=== PATIENT | female | born 1990 | race Caucasian/White ===

== ENCOUNTER 2017-04-24 23:45 | Inpatient (IN) | payer OTHER, BC ==
[2017-04-25] MEDS ORDERED: Penicillin G Potassium 5 MILLUNITS in Sodium Chloride 0.9% 100 ML IV ONE (00:53)
[2017-04-25] MEDS ORDERED: hydrOXYzine HCl 25 MG Tab PO ONE (00:56)
[2017-04-25] MEDS: Lactated Ringers 1,000 ML IV SCH ×6 (01:25→11:44)
[2017-04-25] MEDS ORDERED: Nalbuphine 10 MG/1 ML Vial IM ONE (03:23)
[2017-04-25] MEDS: Penicillin G Potassium 2.5 MILLUNITS in Sodium Chloride 0.9% 100 ML IV SCH ×3 (05:31→18:35)
[2017-04-25] MEDS: Ondansetron 4 MG/2 ML SDV IV PRN ×2 (07:55→11:47)
--- NOTE | 2017-04-25 07:58 | PCM.SN ---
- Free Text/Narrative Note: DOS: 04-25-17 Doing well cervix 5cm between cxns. 4+ with cxn. 0 to +1 station completely effaced vertex, ROP with AF @ 230 BOWI--AROM with returnof clear fluid cxns strong and regular low grade temp noted approx 100--will follow. has had PCN X 2 with dose #3 due soon will have intrathecal now continue to monitor closely knee chest position until intrathecal in all questions answered staff and pt/ comfortable with plan. hmb
[2017-04-25] MEDS ORDERED: ePHEDrine 50 MG/ML SDV ONE (08:15)
[2017-04-25] MEDS ORDERED: fentaNYL 100 MCG/2 ML SDV ONE ×2 (08:15→11:50)
--- NOTE | 2017-04-25 08:47 | PCM.PREANE ---
Preanesthetic Assessment - Anesthesia/Transfusion/Family Hx Anesthesia History: No Prior Anesthesia Family History of Anesthesia Reaction: No Transfusion History: No Prior Transfusion(s) Intubation History: Unknown - Review of Systems General: No Symptoms Pulmonary: No Symptoms Cardiovascular: No Symptoms Gastrointestinal: No symptoms Neurological: No Symptoms Other: Reports: None - Physical Assessment NPO Status Date: 04/25/17 NPO Status Time: 06:00 Pulse: 94 O2 Sat by Pulse Oximetry: 99 Respiratory Rate: 18 Blood Pressure: 104/66 Vital Signs: Last Vital Signs Temp 38.0 C 04/25/17 06:30 Pulse 94 04/25/17 06:30 Resp 18 04/25/17 01:30 BP 118/69 04/25/17 06:00 Pulse Ox 99 04/25/17 06:30 Height: 1.75 m Weight: 83.007 kg ASA Class: 2 Mental Status: Alert & Oriented x3 Airway Class: Mallampati = 2 Dentition: Reports: Normal Dentition Thyro-Mental Finger Breadths: 3 Mouth Opening Finger Breadths: 4 ROM/Head Extension: Full Lungs: Clear to auscultation, Normal respiratory effort Cardiovascular: Regular Rate, Regular Rhythm - Lab Values: Laboratory Last Values WBC 14.1 10^3/uL (5.0-10.0) H 04/25/17 01:10 RBC 4.12 10^6/uL (4.2-5.4) L 04/25/17 01:10 Hgb 12.9 g/dL (12.0-16.0) 04/25/17 01:10 Hct 38.2 % (37.0-47.0) 04/25/17 01:10 MCV 92.7 fL (80-100) 04/25/17 01:10 MCH 31.3 pg (27.0-34.0) 04/25/17 01:10 MCHC 33.8 g/dL (33.0-35.0) 04/25/17 01:10 Plt Count 197 10^3/uL (150-450) 04/25/17 01:10 - Allergies Allergies/Adverse Reactions: Allergies Allergy/AdvReac Type Severity Reaction Status Date / Time No Known Allergies Allergy Verified 04/25/17 00:55 - Anesthesia Plan Pre-Op Medication Ordered: None - Acknowledgements Anesthesia Type Planned: Spinal Pt an Appropriate Candidate for the Planned Anesthesia: Yes Alternatives and Risks of Anesthesia Discussed w Pt/Guardian: Yes Pt/Guardian Understands and Agrees with Anesthesia Plan: Yes Additional Comments: Itrathecal Narctotics for labor pain Risks/Benefits discussed and accepted by patient PreAnesthesia Questionnaire - Past Health History Medical/Surgical History: Denies Medical/Surgical History - Infectious Disease History Infectious Disease History: Reports: Chicken Pox - SUBSTANCE USE Smoking Status *Q: Never Smoker Second Hand Smoke Exposure: No Recreational Drug Use History: No - CURRENT (IN HOUSE) MEDS Current Meds: Current Medications Lactated Ringer's (Ringers, Lactated) 1,000 mls @ 125 mls/hr IV ASDIRECTED COUNT INCLUDES THE [facility] Last Admin: 04/25/17 06:06 Dose: 125 mls/hr Penicillin G Potassium 2.5 (millunits/ Sodium Chloride) 100 mls @ 200 mls/hr IV Q4H COUNT INCLUDES THE [facility] Last Admin: 04/25/17 05:31 Dose: 200 mls/hr Ondansetron HCl (Zofran) 4 mg IV Q4H PRN PRN Reason: Nausea/Vomiting Discontinued Medications Hydroxyzine HCl (Atarax) 50 mg PO ONETIME ONE Stop: 04/25/17 00:57 Last Admin: 04/25/17 02:32 Dose: 50 mg Penicillin G Potassium 5 (millunits/ Sodium Chloride) 100 mls @ 200 mls/hr IV ONETIME ONE Stop: 04/25/17 01:22 Last Admin: 04/25/17 01:22 Dose: 200 mls/hr Nalbuphine HCl (Nubain) 20 mg IM ONETIME ONE Stop: 04/25/17 03:24 Last Admin: 04/25/17 03:42 Dose: 20 mg
--- NOTE | 2017-04-25 08:54 | PCM.PRNOTE ---
- Free Text/Narrative Note: Itrathecal Narcotics procedure note. Patient ID'd R/B discussed, Chart reviewed , in sitting position sterile prep with Betadine and draped. L4-5 space ID's skin wheel with 1% lidocaine. 18 G introducer needle advanced into L4-5 inner space no blood no parasthesia, 23 G pencan needle advanced into SA space positive CSF No Blood no Parasthesia positive swirl sufentanyl 20 mcg+ Fentanyl 30 mcg+ Hyperbaric marcain 6 mg+ 1.2 ml Preservative free saline injected( epinepherine wash not used on the nurse's request, because she feels the patient is progressing very fast and needs to push) into SA space. Immediate pain relief experienced by patient. BP111/67 HR94 Spinal level T8 bilateral.
[2017-04-25] MEDS ORDERED: fentaNYL 100 MCG/2 ML SDV ITHECAL ONE ×2 (11:51→14:47)
--- NOTE | 2017-04-25 12:08 | PCM.PRNOTE ---
- Free Text/Narrative Note: Itrathecal Narcotics procedure note. Patient ID'd R/B discussed, Chart reviewed , in sitting position sterile prep with Betadine and draped. L3-4 space ID's skin wheel with 1% lidocaine. 18 G introducer needle advanced into L4-5 inner space no blood no parasthesia, 23 G pencan needle advanced into SA space positive CSF No Blood no Parasthesia positive swirl sufentanyl 20 mcg+ Fentanyl 30 mcg+ Hyperbaric marcain 6 mg+ 1.2 ml Preservative free saline injected+ epinepherine wash into SA space. Immediate pain relief experienced by patient. BP105/67 HR94 Spinal level T8 bilateral.
[2017-04-25] MEDS ORDERED: Methylergonovine 0.2 MG/1 ML Amp ONE (13:19)
[2017-04-25] MEDS: Oxytocin/Normal Saline 30 UNIT/500 ML BAG IV SCH ×2 (13:20→15:30)
[2017-04-25] MEDS ORDERED: Methylergonovine 0.2 MG/1 ML Amp IM PRN (13:52)
[2017-04-25] MEDS ORDERED: Misoprostol 400 MCG (4 X 100 MCG TAB) RECTAL PRN (13:52)
[2017-04-25] MEDS ORDERED: Lactated Ringers 500 ML IV ONE (13:52)
[2017-04-25] MEDS ORDERED: Carboprost Tromethamine 250 MCG/1 ML Amp IM PRN (13:52)
[2017-04-25] MEDS ORDERED: Sodium Chloride 0.9% 10 ML Syringe FLUSH PRN (13:52)
[2017-04-25] MEDS ORDERED: Zolpidem 5 MG Tab PO PRN (13:56)
[2017-04-25] MEDS ORDERED: Benzocaine/Menthol 20%-0.5% Spray 56 GM Canister TOP PRN (13:56)
[2017-04-25] MEDS ORDERED: Lactated Ringers 1,000 ML IV SCH (14:00)
--- NOTE | 2017-04-25 14:03 | PCM.DEL ---
L & D Note - General Info Date of Service: 04/25/17 (time of delivery 1314) Mother's Due Date: 05/03/17 - Delivery Note Labor: spontaneous, augmented by ARM Delivery Outcome: Livebirth Delivery Method: Spontaneous Vaginal Delivery Infant Delivery Mode: Vacuum Extraction Presentation: Left Occiput Anterior (RAYMON) Nuchal cord: none Prep: povidone-iodine (betadine Anesthesia Type: Intrathecal Amniotic Fluid Description: Clear Episiotomy Type: None Laceration: 2nd degree Suture type: vicryl Suture size: 3-0 Placenta: expressed Cord: 3 vessels Estimated blood loss: 450 Resuscitation needed: No [place]: bulb syringe, stimulated Provider: Alyse Gardner Score 1 min: 8 Score 5 min: 9 Vacuum Extractor Progress Note - Alternative Labor Strategies Considered Alternative labor strategies considered:: Reports: yes Strategies considered:: Reports: Contraction intensity adequate, Position changes used to facilitate rotation & descent, Empty bladder, Rest Indications considered:: Reports: yes Time out:: Reports: yes - Patient Prepared Patient prepared:: Reports: yes Informed consent:: Reports: Yes Risks: Reports: yes Anesthesia/analgesia adequate:: Reports: yes - Probability of Success High probability of success:: Reports: yes weight estimated:: Reports: AGA Patient diabetic:: Reports: no Pelvis adequate:: Reports: yes Position:: RAYMON Asynclitic:: Reports: no Station:: with cxn - Application Time Maximum application time & number of pop-offs predetermined:: Reports: yes Number of times cup disengaged:: 0 Type of vacuum used:: Reports: Cup: [place] type Vacuum Extraction: Successful Comments:: vacuum cup on with only part of one contraction before delivery of baby. hmb - Exit Strategy Exit strategy available:: Reports: yes and resuscitation teams readily available:: Reports: yes Consult as indicated:: NA - Patient Data Vitals - most recent: Last Vital Signs Temp 100.1 F 04/25/17 10:15 Pulse 88 04/25/17 10:45 Resp 18 04/25/17 08:47 BP 188/64 H 04/25/17 10:45 Pulse Ox 98 04/25/17 10:45 Weight - most recent: 183 lb I&O - last 24 hours: Intake & Output 04/24/17 04/25/17 04/25/17 22:59 06:59 14:59 Intake Total 2200 Output Total 800 Balance 2200 -800 Lab Results last 24 hrs: Laboratory Results - last 24 hr 04/25/17 Range/Units 01:10 WBC 14.1 H (5.0-10.0) 10^3/uL RBC 4.12 L (4.2-5.4) 10^6/uL Hgb 12.9 (12.0-16.0) g/dL Hct 38.2 (37.0-47.0) % MCV 92.7 (80-100) fL MCH 31.3 (27.0-34.0) pg MCHC 33.8 (33.0-35.0) g/dL Plt Count 197 (150-450) 10^3/uL Med Orders - Current: Current Medications Acetaminophen (Tylenol) 650 mg PO Q4H PRN PRN Reason: Pain (Mild 1-3) and fever Carboprost Tromethamine (Hemabate Ds) 250 mcg IM ASDIRECTED PRN PRN Reason: HEMORRHAGE Lactated Ringer's (Ringers, Lactated) 1,000 mls @ 125 mls/hr IV ASDIRECTED [facility] Last Admin: 04/25/17 11:44 Dose: 100 mls/hr Penicillin G Potassium 2.5 (millunits/ Sodium Chloride) 100 mls @ 200 mls/hr IV Q4H [facility] Last Admin: 04/25/17 10:01 Dose: 200 mls/hr Lactated Ringer's (Ringers, Lactated) 500 mls @ 500 mls/hr IV .BOLUS ONE Stop: 04/25/17 14:51 Lactated Ringer's (Ringers, Lactated) 1,000 mls @ 125 mls/hr IV ASDIRECTED [facility] Methylergonovine Maleate (Methergine) 0.2 mg IM ASDIRECTED PRN PRN Reason: Hemorrhage Misoprostol (Cytotec) 800 mcg RECTAL ASDIRECTED PRN PRN Reason: Hemorrhage Ondansetron HCl (Zofran) 4 mg IV Q4H PRN PRN Reason: Nausea/Vomiting Last Admin: 04/25/17 11:47 Dose: 4 mg Sodium Chloride (Saline Flush) 10 ml FLUSH ASDIRECTED PRN PRN Reason: Keep Vein Open Discontinued Medications Ephedrine Sulfate (Ephedrine Sulfate) Confirm Administered Dose 50 mg .ROUTE .STK-MED ONE Stop: 04/25/17 08:16 Fentanyl (Sublimaze) Confirm Administered Dose 100 mcg .ROUTE .STK-MED ONE Stop: 04/25/17 08:16 Fentanyl (Sublimaze) Confirm Administered Dose 100 mcg .ROUTE .STK-MED ONE Stop: 04/25/17 11:51 Hydroxyzine HCl (Atarax) 50 mg PO ONETIME ONE Stop: 04/25/17 00:57 Last Admin: 04/25/17 02:32 Dose: 50 mg Penicillin G Potassium 5 (millunits/ Sodium Chloride) 100 mls @ 200 mls/hr IV ONETIME ONE Stop: 04/25/17 01:22 Last Admin: 04/25/17 01:22 Dose: 200 mls/hr Methylergonovine Maleate (Methergine) Confirm Administered Dose 0.2 mg .ROUTE .STK-MED ONE Stop: 04/25/17 13:20 Nalbuphine HCl (Nubain) 20 mg IM ONETIME ONE Stop: 04/25/17 03:24 Last Admin: 04/25/17 03:42 Dose: 20 mg Sufentanil Citrate (Sufenta) Confirm Administered Dose 50 mcg .ROUTE .STK-MED ONE Stop: 04/25/17 08:16 Sufentanil Citrate (Sufenta) Confirm Administered Dose 50 mcg .ROUTE .STK-MED ONE Stop: 04/25/17 11:52 - Problem List Review Problem List Initiated/Reviewed/Updated: Yes - My Orders Last 24 Hours: My Active Orders 04/25/17 00:57 Communication Order [RC] PER UNIT ROUTINE 04/25/17 01:00 Lactated Ringers [Ringers, Lactated] 1,000 ml IV ASDIRECTED 04/25/17 04:30 Penicillin G Potassium [Pfizerpen] 2.5 millunits Sodium Chloride 0.9% [Normal Saline] 100 ml IV Q4H 04/25/17 07:54 Ondansetron [Zofran] 4 mg IV Q4H PRN 04/25/17 13:52 Patient Status [ADT] Routine Communication Order [RC] ASDIRECTED Heart Tones [RC] PER UNIT ROUTINE Notify Provider Vital Signs OB [RC] ASDIRECTED Notify Provider [RC] PRN Up ad [place] [RC] ASDIRECTED Vital Signs [RC] PER UNIT ROUTINE Acetaminophen [Tylenol] 650 mg PO Q4H PRN Carboprost Tromethamine [Hemabate DS] 250 mcg IM ASDIRECTED PRN Lactated Ringers [Ringers, Lactated] 500 ml IV .BOLUS Methylergonovine [Methergine] 0.2 mg IM ASDIRECTED PRN Misoprostol [Cytotec] 800 mcg RECTAL ASDIRECTED PRN Sodium Chloride 0.9% [Saline Flush] 10 ml FLUSH ASDIRECTED PRN Saline Lock Insert [OM.PC] Routine Resuscitation Status Routine 04/25/17 13:54 Pump Management, Intrathecal [RC] ASDIRECTED 04/25/17 13:56 Consult to Radiation Officer [CONS] Routine Benzocaine/Menthol [Dermoplast Pain Relief [place]] See Dose Instructions TOP Q4H PRN Docusate Sodium [Colace] 100 mg PO BID PRN Ibuprofen [Motrin] 800 mg PO Q8H PRN Simethicone 80 mg PO Q4H PRN Zolpidem [Ambien] 5 mg PO BEDTIME PRN Assess Lochia [WOMSER] Per Unit Routine Assess Uterine Involution [WOMSER] Per Unit Routine Breast Pump [WOMSER] Per Unit Routine Ice Therapy [OM.PC] Per Unit Routine Perineal Care [OM.PC] Per Unit Routine Sitz Bath [OM.PC] Per Unit Routine 04/25/17 14:00 Lactated Ringers @ 125 MLS/HR(1000ml) Lactated Ringers [Ringers, Lactated] 1, 000 ml IV ASDIRECTED 04/26/17 09:00 Vit with Ca/FA/Iron [ Plus Iron] 1 each PO DAILY 04/27/17 05:11 CBC W/O DIFF,HEMOGRAM [HEME] AM - Assessment Assessment:: VAVD--see plan section for details. - Plan Plan:: Assessment: 26yo WF G1 now P1 VAVD delivered 04-25-17 @ 1314 male infant APGARs 8 & 9 7lb 10oz/3460g 2 degree lac repaired without difficulty 450cc blood loss O negative blood type Plan: routine nursery and orders. b
[2017-04-25] MEDS ORDERED: Lidocaine 1% 30 ML SDV INJECT ONE (14:17)
[2017-04-25] MEDS: Ibuprofen 800 MG Tab PO PRN (19:24)
[2017-04-25] MEDS: Simethicone 80 MG Tab.Chew PO PRN (19:24)
[2017-04-25] MEDS: Docusate Sodium 100 MG Cap PO PRN (19:24)
--- NOTE | 2017-04-25 20:10 | PCM.POSTAN ---
POST ANESTHESIA ASSESSMENT - MENTAL STATUS Mental Status: alert, oriented - VITAL SIGNS Pulse Rate: 89 SaO2: 99 Resp Rate: 18 Blood Pressure: 118/72 - RESPIRATORY Respiratory Status: respiratory rate WNL, airway patent, O2 saturation stable - CARDIOVASCULAR CV Status: pulse rate WNL, blood pressure stable - GASTROINTESTINAL GI Status: no symptoms - PAIN Pain Score: 0 - POST OP HYDRATION Hydration Status: adequate & stable - OBSERVATIONS Free Text/Narrative:: Patient is fully recovered from the effect of the Intrathecal Narctics. Ambulated twice without any problems. Sitting in bed pain free and pleased with her anesthetics
[2017-04-26] MEDS: Ibuprofen 800 MG Tab PO PRN ×2 (04:34→18:27)
--- NOTE | 2017-04-26 07:17 | HP ---
CHIEF COMPLAINT: Onset of labor. HISTORY OF PRESENT ILLNESS: This delightful 26-year-old, 1, para 0, at 38 and 5/7th weeks' gestation was seen in the clinic today and found to be 1-2 cm dilated. She was having intermittent [place] contractions and feeling a lot of pelvic pressure. The baby had been active. Please see her clinic note for details. care: Her care had been started in her first trimester, and she has been very compliant with her visits. dating is by LMP and confirmed by a 22-week ultrasound, which is consistent with her dates and within normal limits. Lab work showed, O negative blood type, and she did receive her RhoGAM. Her antibody screen is negative. Baseline hemoglobin is 13.7 with a followup of 12.8. Platelet counts were 272 and 249. Rubella immune. RPR nonreactive. HIV negative. STD testing was all within normal limits. Hepatitis C was negative. One-hour sugar screen normal at 80. Group B strep was positive in her first urine culture, and therefore she did not need a rectovaginal swab as she did require prophylaxis for delivery and this had been discussed with her. Please see her notes for details. Of note, she did have a foreign travel to the [facility], but there was no known exposure to mosquitos or insect bites, and she did not have any symptoms of Zika virus infection. MEDICATIONS: Include her vitamins. ALLERGIES: None. PAST OBSTETRICAL HISTORY: Negative. PAST MEDICAL HISTORY: Includes acne and is otherwise unremarkable. She has had distant chickenpox. FAMILY HISTORY: Diabetes in maternal grandmother, otherwise unremarkable. SOCIAL HISTORY: She was to [place] in 2016. 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 Nonsmoker. No history of alcohol or drug abuse. This is their first child and they did not know the gender in advance. They are very excited about having a child. IMMUNIZATIONS: Up-to-date on immunizations, and did receive both flu shot and Tdap during this . REVIEW OF SYSTEMS: Otherwise noncontributory. PHYSICAL EXAMINATION: Vital Signs: Objective information on arrival, please see her graphics for details of her vitals. Her blood pressure has remained within normal limits throughout her . HEENT: Negative. Lungs: Clear. Heart: Sounds regular. Abdomen: Gravid and within normal limits at her clinic checkup. Cervix: Her cervix was 1.5 cm dilated cervix, 80% to 90% effaced, and -2 station. Bag of water intact, vertex presenting. Extremities: No peripheral edema. LABORATORY DATA: NST on arrival was reassuring. CBC was drawn and pending. IMPRESSION: 1. A 26-year-old, 1, para 0, at 38 and 5/7th weeks' gestation with onset of spontaneous labor. 2. Group B strep positive. 3. O negative, received RhoGAM during her . 4. Rubella immune. 5. Reassuring status. PLAN: The patient was admitted with routine admit orders. We will plan on penicillin prophylaxis as discussed. Further management pending her course in labor. [facility] /[id number]
[2017-04-26] MEDS: Prenatal Multivitamin with Calcium/Folic Acid/Iron Tab PO SCH (09:26)
[2017-04-26] MEDS: Acetaminophen 325 MG Tab PO PRN (09:27)
[2017-04-26] MEDS: Docusate Sodium 100 MG Cap PO PRN ×2 (09:28→22:04)
[2017-04-26] MEDS: Simethicone 80 MG Tab.Chew PO PRN (09:28)
[2017-04-27] MEDS: Ibuprofen 800 MG Tab PO PRN (03:04)
[2017-04-27 08:00] VITALS: BP 98/64
[2017-04-27] MEDS: Prenatal Multivitamin with Calcium/Folic Acid/Iron Tab PO SCH (08:08)
[2017-04-27] MEDS: Acetaminophen 325 MG Tab PO PRN (08:08)
[2017-04-27] MEDS: Simethicone 80 MG Tab.Chew PO PRN (08:08)
[2017-04-27] MEDS: Docusate Sodium 100 MG Cap PO PRN (08:08)
--- NOTE | 2017-04-28 02:03 | PCM.SN ---
- Free Text/Narrative Note: DOS: 04-26-17 PPD #1 Nayeli doing very well following her VAVD nursing going well. some cramping with nursing. flow decreasing. voiding and stooling ok. mbulating well. bonding well with baby. Afebrile, VSS staff without concerns. has seen obiee consultant fundus firm, nontender Continue with routine PP cares Plan home tomorrow see nursing notes for further details. hmb
--- NOTE | 2017-04-28 04:08 | DISCH ---
FINAL DIAGNOSES: 1. A 26-year-old, 1, now para 1, 38-week 6-day gestation. 2. Vacuum assisted vaginal delivery, viable male . 3. Group B Streptococcus positive, received penicillin prophylaxis multiple doses. 4. mom. 5. Second-degree laceration repair. 6. O negative blood type, received RhoGAM. 7. Rubella immune. 8. anemia. FINDINGS: This delightful 26-year-old, 1, para 0, presented with onset of labor. She progressed on, had artificial rupture of membranes, carried out with return of clear fluid. Due to her positive group B strep status, she had been started on penicillin prophylaxis, which was continued throughout labor. Please see her admission H and P for details. Please also see her episode notes for details of her care. The patient delivered a viable male infant, weighing 3460 g on 04/25/2017, at 1314 hours, with a vacuum assist with part of 1 contraction. scores were 8 and 9 at 1 and 5 minutes respectively. She did have a second-degree laceration, which was repaired without difficulty and she had good anesthesia with her intrathecal and did not require a local. Her course has been uneventful. She is voiding, stooling, ambulating without difficulty. She is eating without problems. She is and has seen the telecom sales consultant. Blood type is O negative. On admit, she did have a positive antibody screen and that was found to be a passive anti-D likely from her RhoGAM given during her . Her -maternal bleeding screen was negative. Cord blood was found to be B positive and she was given RhoGAM. Hemoglobin on admit was 12.9, and a recheck the day of discharge was 10.5. She will be discharged home with iron supplementation and will continue her vitamins daily. Clinically, she has done well, her fundus has remained firm, her flow is decreasing. She has remained afebrile with stable vital signs. She will be discharged home in good condition on 04/27/2017, and will follow up in the clinic for routine check in 6 to 8 weeks and sooner with any problems. She is to call or follow up with any problems in the meantime, and other routine discharge instructions were given. All of her questions were answered. [facility] /[id number]
== END 2017-04-27 16:53 | disposition home or self-care (01) | DRG 775 ==
LOC: DL.OBCHECK 23:45 → DL.OB 04-25 00:51 → OBSVTOIN 04-25 13:14
PROVIDERS: ADMIT Family Medicine; ATTEND Family Medicine
PROC: 10D07Z6 Extraction of Products of Conception, Vacuum, Via Natural or Artificial Opening (ICD-10-PCS; principal; 2017-04-25)
PROC: 0KQM0ZZ Repair Perineum Muscle, Open Approach (ICD-10-PCS; 2017-04-25)
PROC: 10907ZC Drainage of Amniotic Fluid, Therapeutic from Products of Conception, Via Natural or Artificial Opening (ICD-10-PCS; 2017-04-25)
PROC: 3E0R3CZ (ICD-10-PCS; 2017-04-25)
DX: O99.824 Streptococcus B carrier state complicating childbirth (principal); O70.1 Second degree perineal laceration during delivery; O90.81 Anemia of the puerperium; D64.9 Anemia, unspecified; Z3A.38 38 weeks gestation of pregnancy; Z37.0 Single live birth
CPT/HCPCS: 01967; 36415; 85027; 85461; 86850; 86870; 86900; 86901; A9270-GY; J2300; J2405; J2540; J2590; J2790; J3010; J7050; J7120

== ENCOUNTER 2019-02-11 17:44 | Emergency (ER) | payer BC, OTHER ==
[2019-02-11 17:52] VITALS: BP 116/68
[2019-02-11 18:22] LABS: ANION GAP 13.3; CHLORIDE,CL 104 mmol/L (101-111); SODIUM,NA 135 mmol/L (135-145)
[2019-02-11 18:25] LABS: ACETAMINOPHEN < 10 ug/mL
--- NOTE | 2019-02-11 18:52 | EDM.PDOC ---
Scribed by Aline Garcia 02/11/19 1816 for Zafar Jaramillo PA <Zafar Jaramillo - Last Filed: 02/11/19 18:51> ED HPI GENERAL MEDICAL PROBLEM - General Chief Complaint: Abdominal Pain Stated Complaint: SERVERE STOMACH PAINS [phone] Time Seen by Provider: 02/11/19 17:49 Source of Information: Reports: Patient, RN, RN Notes Reviewed History Limitations: Reports: No Limitations - History of Present Illness INITIAL COMMENTS - FREE TEXT/NARRATIVE: This 28 yo female patient reports with diffuse upper abdominal pain. The patient reports her symptoms started this afternoon. The patient reports she took a stool softener (due to no bowel movement in 2 days), Tums (has never had acid reflux) and Zantac with no relief. The patient reports some pain relief with sitting up and forward. The patient reports she had a cheese quesadilla for lunch which is not abnormal for her. The patient reports that she had Influenza last week and was on Tamiflu. Onset: Today Onset Date: 02/11/19 Duration: Constant Location: Reports: Abdomen Quality: Reports: Ache, Sharp, Stabbing Severity: Moderate Improves with: Reports: None Worsens with: Reports: None Context: Reports: Other Associated Symptoms: Reports: No Other Symptoms - Related Data Allergies Allergy/AdvReac Type Severity Reaction Status Date / Time No Known Allergies Allergy Verified 02/11/19 17:54 Home Meds: Home Meds . [No Known Home Meds] 02/11/19 [History] Past Medical History - Past Health History Medical/Surgical History: Denies Medical/Surgical History - Infectious Disease History Infectious Disease History: Reports: Chicken Pox Social & Family History - Family History Family Medical History: Noncontributory - Caffeine Use Caffeine Use: Reports: None ED ROS GENERAL - Review of Systems Review Of Systems: ROS reveals no pertinent complaints other than HPI. ED EXAM, GI/ABD - Physical Exam Exam: See Below Exam Limited By: No Limitations General Appearance: Alert, WD/WN, Moderate Distress Eyes: Bilateral: Normal Appearance, EOMI Ears: Normal External Exam, Normal Canal, Hearing Grossly Normal, Normal TMs Nose: Normal Inspection, Normal Mucosa, No Blood Throat/Mouth: Normal Inspection, Normal Lips, Normal Teeth, Normal Gums, Normal Oropharynx, Normal Voice, No Airway Compromise Head: Atraumatic, Normocephalic Neck: Normal Inspection, Supple, Non-Tender, Full Range of Motion Respiratory/Chest: No Respiratory Distress, Lungs Clear, Normal Breath Sounds, No Accessory Muscle Use, Chest Non-Tender Cardiovascular: Normal Peripheral Pulses, Regular Rate, Rhythm, No Edema, No Gallop, No JVD, No Murmur, No Rub GI/Abdominal Exam: Normal Bowel Sounds, No Organomegaly, No Distention, No Abnormal Bruit, No Mass, Pelvis Stable, Tender (diffuse abdominal tenderness) (Female) Exam: Deferred Rectal (Female) Exam: Deferred Back Exam: Normal Inspection, Full Range of Motion, NT Extremities: Normal Inspection, Normal Range of Motion, Non-Tender, Normal Capillary Refill, No Pedal Edema Neurological: Alert, Oriented, CN II-XII Intact, Normal Cognition, Normal Gait, Normal Reflexes, No Motor/Sensory Deficits Psychiatric: Normal Affect, Normal Mood Skin Exam: Warm, Dry, Intact, Normal Color, No Rash Lymphatic: No Adenopathy Course - Vital Signs Last Recorded V/S: Last Vital Signs Temp 98.4 F 02/11/19 17:49 Pulse 90 02/11/19 17:49 Resp 18 02/11/19 17:49 BP 116/68 02/11/19 17:49 Pulse Ox 99 02/11/19 17:49 - Orders/Labs/Meds Orders: Active Orders 24 hr Category Date Time Status CULTURE BLOOD [BC] Stat Lab 02/11/19 17:54 Results CULTURE URINE [RM] Stat Lab 02/11/19 18:04 Received Labs: Laboratory Tests 02/11/19 02/11/19 02/11/19 Range/Units 17:54 17:54 17:54 WBC 7.8 (5.0-10.0) 10^3/uL RBC 4.64 (4.2-5.4) 10^6/uL Hgb 13.6 D (12.0-16.0) g/dL Hct 39.7 (37.0-47.0) % MCV 85.6 D (80-100) fL MCH 29.3 (27.0-34.0) pg MCHC 34.3 (33.0-35.0) g/dL Plt Count 313 D (150-450) 10^3/uL Neut % (Auto) 59.9 (42.2-75.2) % Lymph % (Auto) 31.0 (20.5-50.1) % Creek % (Auto) 7.9 (2-8) % Eos % (Auto) 1.1 (1.0-3.0) % Baso % (Auto) 0.1 (0.0-1.0) % Sodium (135-145) mmol/L Potassium (3.6-5.0) mmol/L Chloride (101-111) mmol/L Carbon Dioxide (21.0-31.0) mmol/L Anion Gap BUN (7-18) mg/dL Creatinine (0.6-1.3) mg/dL Est Cr Clr Drug Dosing mL/min Estimated GFR (MDRD) BUN/Creatinine Ratio Glucose (74-105) mg/dL Lactic Acid 1.1 (0.5-2.2) mmol/L Calcium (8.4-10.2) mg/dl Total Bilirubin (0.2-1.0) mg/dL AST (10-42) IU/L ALT (10-60) IU/L Alkaline Phosphatase (42-121) IU/L Total Protein (6.7-8.2) g/dl Albumin (3.2-5.5) g/dl Globulin Albumin/Globulin Ratio Amylase 103 H (28-100) U/L Lipase 58 H (22-51) U/L HCG, Qual Positive HCG, Quant (0-25) mIU/ml Beta HCG, Quant mIU/ml Urine Color (YELLOW) Urine Appearance (CLEAR) Urine pH (5.0-9.0) Ur Specific [place] (1.005-1.030) Urine Protein (NEGATIVE) Urine Glucose (UA) (NEGATIVE) Urine Ketones (NEGATIVE) Urine Occult Blood (NEGATIVE) Urine Nitrite (NEGATIVE) Urine Bilirubin (NEGATIVE) Urine Urobilinogen (0.2-1.0) mg/dL Ur Leukocyte Esterase (NEGATIVE) Urine RBC /HPF Urine WBC (0-5/HPF) /HPF Ur Epithelial Cells /HPF Amorphous Sediment (0/HPF) /HPF Urine Bacteria (0-FEW/HPF) /HPF Urine Mucus /LPF Salicylates < 4 mg/dL Urine Opiates Screen (NEGATIVE) Ur Oxycodone Screen (NEGATIVE) Urine Methadone Screen (NEGATIVE) Acetaminophen < 10 ug/mL Ur Barbiturates Screen (NEGATIVE) U Tricyclic Antidepress (NEGATIVE) Ur Phencyclidine Scrn (NEGATIVE) Ur Amphetamine Screen (NEGATIVE) U Methamphetamines Scrn (NEGATIVE) Urine MDMA Screen (NEGATIVE) U Benzodiazepines Scrn (NEGATIVE) Urine Cocaine Screen (NEGATIVE) U Marijuana (THC) Screen (NEGATIVE) Ethyl Alcohol < 5 mg/dL 02/11/19 02/11/19 02/11/19 Range/Units 17:54 17:54 18:04 WBC (5.0-10.0) 10^3/uL RBC (4.2-5.4) 10^6/uL Hgb (12.0-16.0) g/dL Hct (37.0-47.0) % MCV (80-100) fL MCH (27.0-34.0) pg MCHC (33.0-35.0) g/dL Plt Count (150-450) 10^3/uL Neut % (Auto) (42.2-75.2) % Lymph % (Auto) (20.5-50.1) % Creek % (Auto) (2-8) % Eos % (Auto) (1.0-3.0) % Baso % (Auto) (0.0-1.0) % Sodium 135 (135-145) mmol/L Potassium 3.3 L (3.6-5.0) mmol/L Chloride 104 (101-111) mmol/L Carbon Dioxide 21.0 (21.0-31.0) mmol/L Anion Gap 13.3 BUN 10 (7-18) mg/dL Creatinine 0.7 (0.6-1.3) mg/dL Est Cr Clr Drug Dosing 113.37 mL/min Estimated GFR (MDRD) > 60 BUN/Creatinine Ratio 14.28 Glucose 86 (74-105) mg/dL Lactic Acid (0.5-2.2) mmol/L Calcium 9.1 (8.4-10.2) mg/dl Total Bilirubin 0.8 (0.2-1.0) mg/dL AST 19 (10-42) IU/L ALT 13 (10-60) IU/L Alkaline Phosphatase 32 L (42-121) IU/L Total Protein 7.5 (6.7-8.2) g/dl Albumin 4.4 (3.2-5.5) g/dl Globulin 3.1 Albumin/Globulin Ratio 1.42 Amylase (28-100) U/L Lipase (22-51) U/L HCG, Qual HCG, Quant 1168 H (0-25) mIU/ml Beta HCG, Quant 1388 mIU/ml Urine Color Yellow (YELLOW) Urine Appearance Slightly cloudy (CLEAR) Urine pH 7.0 (5.0-9.0) Ur Specific [place] 1.025 (1.005-1.030) Urine Protein Negative (NEGATIVE) Urine Glucose (UA) Negative (NEGATIVE) Urine Ketones Trace H (NEGATIVE) Urine Occult Blood Negative (NEGATIVE) Urine Nitrite Negative (NEGATIVE) Urine Bilirubin Negative (NEGATIVE) Urine Urobilinogen 0.2 (0.2-1.0) mg/dL Ur Leukocyte Esterase Small H (NEGATIVE) Urine RBC 0-5 /HPF Urine WBC 20-30 H (0-5/HPF) /HPF Ur Epithelial Cells Moderate H /HPF Amorphous Sediment Few (0/HPF) /HPF Urine Bacteria Few (0-FEW/HPF) /HPF Urine Mucus Few H /LPF Salicylates mg/dL Urine Opiates Screen (NEGATIVE) Ur Oxycodone Screen (NEGATIVE) Urine Methadone Screen (NEGATIVE) Acetaminophen ug/mL Ur Barbiturates Screen (NEGATIVE) U Tricyclic Antidepress (NEGATIVE) Ur Phencyclidine Scrn (NEGATIVE) Ur Amphetamine Screen (NEGATIVE) U Methamphetamines Scrn (NEGATIVE) Urine MDMA Screen (NEGATIVE) U Benzodiazepines Scrn (NEGATIVE) Urine Cocaine Screen (NEGATIVE) U Marijuana (THC) Screen (NEGATIVE) Ethyl Alcohol mg/dL 02/11/19 Range/Units 18:04 WBC (5.0-10.0) 10^3/uL RBC (4.2-5.4) 10^6/uL Hgb (12.0-16.0) g/dL Hct (37.0-47.0) % MCV (80-100) fL MCH (27.0-34.0) pg MCHC (33.0-35.0) g/dL Plt Count (150-450) 10^3/uL Neut % (Auto) (42.2-75.2) % Lymph % (Auto) (20.5-50.1) % Creek % (Auto) (2-8) % Eos % (Auto) (1.0-3.0) % Baso % (Auto) (0.0-1.0) % Sodium (135-145) mmol/L Potassium (3.6-5.0) mmol/L Chloride (101-111) mmol/L Carbon Dioxide (21.0-31.0) mmol/L Anion Gap BUN (7-18) mg/dL Creatinine (0.6-1.3) mg/dL Est Cr Clr Drug Dosing mL/min Estimated GFR (MDRD) BUN/Creatinine Ratio Glucose (74-105) mg/dL Lactic Acid (0.5-2.2) mmol/L Calcium (8.4-10.2) mg/dl Total Bilirubin (0.2-1.0) mg/dL AST (10-42) IU/L ALT (10-60) IU/L Alkaline Phosphatase (42-121) IU/L Total Protein (6.7-8.2) g/dl Albumin (3.2-5.5) g/dl Globulin Albumin/Globulin Ratio Amylase (28-100) U/L Lipase (22-51) U/L HCG, Qual HCG, Quant (0-25) mIU/ml Beta HCG, Quant mIU/ml Urine Color (YELLOW) Urine Appearance (CLEAR) Urine pH (5.0-9.0) Ur Specific [place] (1.005-1.030) Urine Protein (NEGATIVE) Urine Glucose (UA) (NEGATIVE) Urine Ketones (NEGATIVE) Urine Occult Blood (NEGATIVE) Urine Nitrite (NEGATIVE) Urine Bilirubin (NEGATIVE) Urine Urobilinogen (0.2-1.0) mg/dL Ur Leukocyte Esterase (NEGATIVE) Urine RBC /HPF Urine WBC (0-5/HPF) /HPF Ur Epithelial Cells /HPF Amorphous Sediment (0/HPF) /HPF Urine Bacteria (0-FEW/HPF) /HPF Urine Mucus /LPF Salicylates mg/dL Urine Opiates Screen Positive H (NEGATIVE) Ur Oxycodone Screen Negative (NEGATIVE) Urine Methadone Screen Negative (NEGATIVE) Acetaminophen ug/mL Ur Barbiturates Screen Negative (NEGATIVE) U Tricyclic Antidepress Negative (NEGATIVE) Ur Phencyclidine Scrn Negative (NEGATIVE) Ur Amphetamine Screen Negative (NEGATIVE) U Methamphetamines Scrn Positive H (NEGATIVE) Urine MDMA Screen Negative (NEGATIVE) U Benzodiazepines Scrn Negative (NEGATIVE) Urine Cocaine Screen Negative (NEGATIVE) U Marijuana (THC) Screen Negative (NEGATIVE) Ethyl Alcohol mg/dL Departure - Departure Disposition: Home, Self-Care 01 Clinical Impression: Qualifiers: Weeks of gestation: less than 8 weeks Qualified Code(s): Z3A.01 - Less than 8 weeks gestation of Abdominal pain Qualifiers: Abdominal location: generalized Qualified Code(s): R10.84 - Generalized abdominal pain - Discharge Information Instructions: First Trimester of , [id number] Forms: ED Department Discharge Additional Instructions: Return to the ER with any vaginal bleeding, severe abdominal pain Call the clinic tomorrow to make an appointment for for repeat labs, possibly Ultrasound May use simethicone, zantac, prilosec, TUMS for gas as directed (safe in ) May use Mirilax, colace as directed for constipation Drink plenty of water Follow up with your primary care provider <Va Crouch - Last Filed: 02/11/19 22:13> Course - Radiology Interpretation Free Text/Narrative:: OB ultrasound: FINDINGS: GESTATION: Gestation: No evidence of intrauterine . No evidence of extrauterine . Left ovary has a 2.8 cm simple appearing cyst. No free fluid in the pelvis. IMPRESSION: At this point no evidence of intrauterine or extrauterine . Suggest serial beta-hCG levels. Thank you for allowing us to participate in the care of your patient. Dictated and Authenticated by: Earl Drew MD 02/11/2019 9:24 PM Central Time ([place] & [place]) Abdominal ultrasound: FINDINGS: Liver: Normal. No masses. Gallbladder: Normal. No gallstones. There is no gallbladder wall thickening. Common bile duct: Common bile duct diameter is normal at 5 mm. Pancreas: Visualized pancreas is unremarkable. Right kidney: Right kidney measures 10 cm in length. No hydronephrosis. IMPRESSION: Normal study. Thank you for allowing us to participate in the care of your patient. Dictated and Authenticated by: Earl Drew MD See rad report - Re-Assessments/Exams Free Text/Narrative Re-Assessment/Exam: 02/11/19 22:12 Discussed patient case with Dr. Betancourt who states if no evidence of extrauterine , the patient can be discharged home with follow up in the clinic on for repeat beta quant and ultrasound. Departure - Departure Time of Disposition: 22:03 Condition: Fair - Discharge Information *PRESCRIPTION DRUG MONITORING PROGRAM REVIEWED*: No *COPY OF PRESCRIPTION DRUG MONITORING REPORT IN PATIENT GEOVANY: No I have read and agree with the documentation that has been completed regarding this visit. By signing this record, I attest that the documentation was completed in my physical presence and is an accurate record of the encounter.
== END 2019-02-11 22:12 | disposition home or self-care (01) ==
LOC: DL.ED 17:44
DX: O99.89 Other specified diseases and conditions complicating pregnancy, childbirth and the puerperium (principal); R10.84 Generalized abdominal pain; Z3A.01 Less than 8 weeks gestation of pregnancy
CPT/HCPCS: 36415; 76705; 76815; 76817; 80053; 80305; 81001; 82150; 83605; 83690; 84702; 84703; 85025; 87040; 87086; 99284; G0480

== ENCOUNTER 2019-10-02 21:00 | Inpatient (IN) | payer BC ==
[2019-10-02] MEDS: Lactated Ringers 1,000 ML IV SCH ×2 (21:15→22:00)
[2019-10-02] MEDS ORDERED: Ondansetron 4 MG/2 ML SDV IV PRN (21:37)
[2019-10-02] MEDS ORDERED: Lidocaine 1% 30 ML SDV INJECT PRN (21:37)
[2019-10-02] MEDS ORDERED: Carboprost Tromethamine 250 MCG/1 ML Amp IM PRN (21:37)
[2019-10-02] MEDS ORDERED: Misoprostol 400 MCG (4 X 100 MCG TAB) RECTAL PRN (21:37)
[2019-10-02] MEDS ORDERED: Methylergonovine 0.2 MG/1 ML Amp IM PRN (21:37)
[2019-10-02] MEDS ORDERED: Sodium Chloride 0.9% 10 ML Syringe FLUSH PRN (21:37)
[2019-10-02] MEDS ORDERED: Tranexamic Acid 1,000 MG in Sodium Chloride 0.9% 100 ML IV PRN (21:37)
[2019-10-02] MEDS ORDERED: Lactated Ringers 500 ML IV ONE (21:37)
[2019-10-02] MEDS ORDERED: Oxytocin/Normal Saline 30 UNIT/500 ML BAG IV SCH (21:45)
--- NOTE | 2019-10-02 21:51 | PCM.SN ---
- Free Text/Narrative Note: Intrathecal. Sitting position, sterile prep and drape. 1% lidocaine w bicarb for skinwheal to L2 L3 interspace. Introducer, 24 ga pencan x 1. Pos CSF, neg heme, neg parasthesia., 0.4 ml pf NS, 20 mcg pf Sufenta, 30 mcg pf Fentanyl and 6 mg of 0.75% pf Bupivacaine injected after CSF aspiration. Pt to L lateral position. Procedure time 2130 to 2200
--- NOTE | 2019-10-02 22:28 | PCM.LDHP ---
L&D History of Present Illness - General Date of Service: 10/02/19 Admit Problem/Dx: Patient Status Order with Admit Dx/Problem 10/02/19 21:37 Patient Status [ADT] Routine Admission Diagnosis/Problem Admission Diagnosis/Problem care in third trimester Source of Information: Patient History Limitations: Reports: No Limitations - History of Present Illness Introduction:: 29-year-old at 37w2d presents to L&D in active labor. Patient reports have some "cramping" that started yesterday afternoon. This afternoon around 1300 she started having irregular contractions. Around 1830, she started timing her contractions which were 4-5 minutes apart. They rapidly became stronger and more painful. Patient arrived on the floor and was noted to be 7 cm dilated. No vaginal bleeding or leaking of fluid. Baby has been active. No new headache or vision changes. 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: Psychiatric History: Reports: Anxiety, Depression Hematologic History: Reports: Anemia - Infectious Disease History Infectious Disease History: Reports: Chicken Pox Social & Family History - Family History Family Medical History: Noncontributory - Caffeine Use Caffeine Use: Reports: None H&P Review of Systems - Review of Systems: Review Of Systems: See Below General: Reports: No Symptoms HEENT: Reports: No Symptoms Pulmonary: Reports: No Symptoms Cardiovascular: Reports: No Symptoms Skin: Reports: No Symptoms Psychiatric: Reports: No Symptoms L&D Exam - Exam Exam: See Below - Vital Signs Weight: 807.394 kg - OB Specific Contraction Frequency (min): 4 Contraction Intensity: Strong Movement: Active Heart Tones: Present Heart Tones per Min: 120 Heart Rate (FHR) Variability: Moderate (6-25 bmp) Presentation: Vertex - Jerez Score Jerez Score Cervix Position: Anterior Jerez Score Consistency: Soft Jerez Score Effacement: >80% Jerez Score Dilation: > 5 cm Jerez Score Infant's Station: -1 ,0 Jerez Score Total: 12 - Exam General: Alert, Oriented Lungs: Clear to Auscultation, Normal Respiratory Effort Cardiovascular: Regular Rate, Regular Rhythm. No: Systolic Murmur, Diastolic Murmur Extremities: No Pedal Edema Skin: Warm, Dry, Intact - Patient Data Lab Results Last 24 hrs: Laboratory Results - last 24 hr 10/02/19 Range/Units 21:15 WBC 13.0 H (5.0-10.0) 10^3/uL RBC 4.05 L (4.2-5.4) 10^6/uL Hgb 12.7 (12.0-16.0) g/dL Hct 37.0 (37.0-47.0) % MCV 91.4 D (80-100) fL MCH 31.4 (27.0-34.0) pg MCHC 34.3 (33.0-35.0) g/dL Plt Count 212 D (150-450) 10^3/uL Result Diagrams: 10/02/19 21:15 - Problem List (1) care in third trimester SNOMED Code(s): 500079750, 90859828, 83986859, 373604932, 188418774 ICD Code: Z34.93 - ENCNTR FOR SUPRVSN OF NORMAL PREG, UNSP, THIRD TRIMESTER Status: Acute Current Visit: Yes (2) Rh negative status during SNOMED Code(s): 344158092 ICD Code: O26.899 - OTH RELATED CONDITIONS, UNSPECIFIED TRIMESTER; Z67.91 - UNSPECIFIED BLOOD TYPE, RH NEGATIVE Status: Acute Current Visit: Yes (3) Anemia affecting SNOMED Code(s): 85755374 ICD Code: O99.019 - ANEMIA COMPLICATING , UNSPECIFIED TRIMESTER Status: Acute Current Visit: Yes Problem List Initiated/Reviewed/Updated: Yes Orders Last 24hrs: Active Orders 24 hr Category Date Time Status Patient Status [ADT] Routine ADT 10/02/19 21:37 Ordered Communication Order [RC] ASDIRECTED Care 10/02/19 21:37 Ordered Heart Tones [RC] PER UNIT ROUTINE Care 10/02/19 21:37 Ordered Notify Provider Vital Signs OB [RC] ASDIRECTED Care 10/02/19 21:37 Ordered Notify Provider [RC] PRN Care 10/02/19 21:37 Ordered POC Labs [RC] ASDIRECTED Care 10/02/19 21:37 Ordered Pump Management, Intrathecal [RC] ASDIRECTED Care 10/02/19 21:37 Ordered Up ad [place] [RC] ASDIRECTED Care 10/02/19 21:37 Ordered Vital Signs [RC] PER UNIT ROUTINE Care 10/02/19 21:37 Ordered Acetaminophen [Tylenol] Med 10/02/19 21:37 Ordered 650 mg PO Q4H PRN Carboprost Tromethamine [Hemabate DS] Med 10/02/19 21:37 Ordered 250 mcg IM ASDIRECTED PRN Lactated Ringers @ 125 MLS/HR(1000ml) Med 10/02/19 21:45 Ordered Lactated Ringers [Ringers, Lactated] 1,000 ml IV ASDIRECTED Lidocaine 1% [Xylocaine-MPF 1%] Med 10/02/19 21:37 Ordered 30 ml INJECT ASDIRECTED PRN Methylergonovine [Methergine] Med 10/02/19 21:37 Ordered 0.2 mg IM ASDIRECTED PRN Ondansetron [Zofran] Med 10/02/19 21:37 Ordered 4 mg IV Q4H PRN Oxytocin 30 Units in NS @ 2 MUNITS/MIN(500ml) Med 10/02/19 21:45 Ordered Oxytocin/Normal Saline [Pitocin in NS 30 UNIT/500 ML] 30 unit in 500 ml IV TITRATE Sodium Chloride 0.9% [Saline Flush] Med 10/02/19 21:37 Ordered 10 ml FLUSH ASDIRECTED PRN Tranexamic Acid [Cyklokapron] 1,000 mg Med 10/02/19 21:37 Ordered Sodium Chloride 0.9% [Normal Saline] 100 ml IV ONETIME miSOPROStol [Cytotec] Med 10/02/19 21:37 Ordered 800 mcg RECTAL ASDIRECTED PRN Saline Lock Insert [OM.PC] Routine Oth 10/02/19 21:37 Ordered Resuscitation Status Routine Resus Stat 10/02/19 21:37 Ordered Medication Orders Acetaminophen (Tylenol) 650 mg PO Q4H PRN PRN Reason: Pain (Mild 1-3) and fever Carboprost Tromethamine (Hemabate Ds) 250 mcg IM ASDIRECTED PRN PRN Reason: HEMORRHAGE Lactated Ringer's (Ringers, Lactated) 1,000 mls @ 125 mls/hr IV ASDIRECTED REMA Last Admin: 10/02/19 22:00 Dose: 125 mls/hr Infusion: 10/02/19 22:00 Dose: 125 mls/hr Admin: 10/02/19 21:15 Dose: 125 mls/hr Oxytocin/Sodium Chloride (Pitocin In Ns 30 Unit/500 Ml) 30 unit in 500 mls @ 2 mls/hr IV TITRATE REMA; Protocol Tranexamic Acid 1,000 mg/ (Sodium Chloride) 110 mls @ 660 mls/hr IV ONETIME PRN PRN Reason: Bleeding Lidocaine HCl (Xylocaine-Mpf 1%) 30 ml INJECT ASDIRECTED PRN PRN Reason: Perineal Repair Methylergonovine Maleate (Methergine) 0.2 mg IM ASDIRECTED PRN PRN Reason: Hemorrhage Misoprostol (Cytotec) 800 mcg RECTAL ASDIRECTED PRN PRN Reason: Hemorrhage Ondansetron HCl (Zofran) 4 mg IV Q4H PRN PRN Reason: Nausea/Vomiting Last Admin: 10/02/19 22:01 Dose: 4 mg Sodium Chloride (Saline Flush) 10 ml FLUSH ASDIRECTED PRN PRN Reason: Keep Vein Open Assessment/Plan Comment:: 29-year-old at 37w2d in active labor 1. Admit to L&D and initiate routine intrapartum orders 2. Patient desires intrathecal 3. Expectant management. Anticipate Nimisha Betancourt MD
[2019-10-02] MEDS ORDERED: Simethicone 80 MG Tab.Chew PO PRN (23:42)
[2019-10-02] MEDS ORDERED: Benzocaine/Menthol 20%-0.5% Spray 56 GM Canister TOP PRN (23:42)
[2019-10-02] MEDS ORDERED: Oxytocin 10 Units/1 ML SDV IM PRN (23:42)
--- NOTE | 2019-10-02 23:49 | PCM.DEL ---
L & D Note - General Info Date of Service: 10/02/19 Mother's Due Date: 10/21/19 - Delivery Note Labor: Spontaneous, Induced by ARM Delivery Outcome: Livebirth Infant Delivery Method: Spontaneous Vaginal Delivery-Single Presentation: Vertex Nuchal Cord: None Anesthesia Type: Intrathecal Amniotic Fluid Description: Clear Episiotomy Type: None Laceration: 2nd Degree, Vaginal Suture type: Vicryl Suture size: 3-0 Placenta: Intact, Spontaneous Cord: 3 Vessels Estimated Blood Loss: 225 Resuscitation Needed: Yes [place]: Suctioned, Bulb Syringe, Stimulated, Warmed, [place] Used, Warmer Used Provider: Nimisha Betancourt Score 1 min: 6 Score 5 min: 8 Delivery Comments (Free Text/Narrative):: 29-year-old presented to L&D in active labor. She was noted to be 7 cm on arrival. Patient received intrathecal for pain control. She was noted to be complete at 2225. As patient was comfortable, she did labor down for about half an hour. Patient started pushing at 2301. She delivered a viable male infant at 2321. Agpars were 6 and 8 at 1 and 5 minutes respectively. Baby was initially placed on mother's chest but due to poor respiratory effort was taken to the warmer after umbilical cord was clamped x2 and cut. Cord blood was collected. The placenta delivered 3 minutes later spontaneously and was noted to be intact. A second degree vaginal laceration was noted on the posterior vaginal was and was repaired with 3-0 Vicryl in the usual fashion. Uterus was noted to be firm and bleeding was appropriate. Patine tolerated the procedure well, and there were no immediate complications. - General Info Date of Service: 10/02/19 - Patient Data Weight - Most Recent: 807.394 kg Lab Results Last 24 Hours: Laboratory Results - last 24 hr 10/02/19 Range/Units 21:15 WBC 13.0 H (5.0-10.0) 10^3/uL RBC 4.05 L (4.2-5.4) 10^6/uL Hgb 12.7 (12.0-16.0) g/dL Hct 37.0 (37.0-47.0) % MCV 91.4 D (80-100) fL MCH 31.4 (27.0-34.0) pg MCHC 34.3 (33.0-35.0) g/dL Plt Count 212 D (150-450) 10^3/uL Med Orders - Current: Current Medications Acetaminophen (Tylenol) 650 mg PO Q4H PRN PRN Reason: Pain (Mild 1-3) and fever Carboprost Tromethamine (Hemabate Ds) 250 mcg IM ASDIRECTED PRN PRN Reason: HEMORRHAGE Lactated Ringer's (Ringers, Lactated) 1,000 mls @ 125 mls/hr IV ASDIRECTED REMA Last Admin: 10/02/19 22:00 Dose: 125 mls/hr Oxytocin/Sodium Chloride (Pitocin In Ns 30 Unit/500 Ml) 30 unit in 500 mls @ 2 mls/hr IV TITRATE REMA; Protocol Last Titration: 10/02/19 23:42 Dose: 250 munits/min, 250 mls/hr Methylergonovine Maleate (Methergine) 0.2 mg IM ASDIRECTED PRN PRN Reason: Hemorrhage Misoprostol (Cytotec) 800 mcg RECTAL ASDIRECTED PRN PRN Reason: Hemorrhage Ondansetron HCl (Zofran) 4 mg IV Q4H PRN PRN Reason: Nausea/Vomiting Last Admin: 10/02/19 22:01 Dose: 4 mg Sodium Chloride (Saline Flush) 10 ml FLUSH ASDIRECTED PRN PRN Reason: Keep Vein Open Discontinued Medications Lactated Ringer's (Ringers, Lactated) 500 mls @ 999 mls/hr IV .BOLUS ONE Stop: 10/02/19 22:07 Tranexamic Acid 1,000 mg/ (Sodium Chloride) 110 mls @ 660 mls/hr IV ONETIME PRN PRN Reason: Bleeding Lidocaine HCl (Xylocaine-Mpf 1%) 30 ml INJECT ASDIRECTED PRN PRN Reason: Perineal Repair - Problem List & Annotations (1) care in third trimester SNOMED Code(s): 375995577, 84239058, 90695267, 528813024, 585332927 Code(s): Z34.93 - ENCNTR FOR SUPRVSN OF NORMAL PREG, UNSP, THIRD TRIMESTER Status: Acute Current Visit: Yes (2) Rh negative status during SNOMED Code(s): 453307256 Code(s): O26.899 - OTH RELATED CONDITIONS, UNSPECIFIED TRIMESTER; Z67.91 - UNSPECIFIED BLOOD TYPE, RH NEGATIVE Status: Acute Current Visit: Yes (3) Anemia affecting SNOMED Code(s): 92423471 Code(s): O99.019 - ANEMIA COMPLICATING , UNSPECIFIED TRIMESTER Status: Acute Current Visit: Yes (4) (normal spontaneous vaginal delivery) SNOMED Code(s): 84610125, 773284868 Code(s): O80 - ENCOUNTER FOR FULL-TERM UNCOMPLICATED DELIVERY Status: Acute Current Visit: Yes (5) Obstetric vaginal laceration SNOMED Code(s): 530022082 Code(s): O71.4 - OBSTETRIC HIGH VAGINAL LACERATION ALONE Status: Acute Current Visit: Yes - Problem List Review Problem List Initiated/Reviewed/Updated: Yes - My Orders Last 24 Hours: My Active Orders 10/02/19 21:37 Patient Status [ADT] Routine Heart Tones [RC] PER UNIT ROUTINE Notify Provider Vital Signs OB [RC] ASDIRECTED POC Labs [RC] ASDIRECTED Up ad [place] [RC] ASDIRECTED Vital Signs [RC] 08,20 Acetaminophen [Tylenol] 650 mg PO Q4H PRN Carboprost Tromethamine [Hemabate DS] 250 mcg IM ASDIRECTED PRN Methylergonovine [Methergine] 0.2 mg IM ASDIRECTED PRN Ondansetron [Zofran] 4 mg IV Q4H PRN Sodium Chloride 0.9% [Saline Flush] 10 ml FLUSH ASDIRECTED PRN miSOPROStol [Cytotec] 800 mcg RECTAL ASDIRECTED PRN Saline Lock Insert [OM.PC] Routine Resuscitation Status Routine 10/02/19 21:45 Lactated Ringers [Ringers, Lactated] 1,000 ml IV ASDIRECTED Oxytocin/Normal Saline [Pitocin in NS 30 UNIT/500 ML] 30 unit in 500 ml IV TITRATE 10/02/19 23:42 Vital Signs [RC] PFP Consult to Tools Administrator [CONS] Routine Benzocaine/Menthol [Dermoplast Pain Relief [place]] See Dose Instructions TOP Q4H PRN Docusate Sodium [Colace] 100 mg PO BID PRN Ibuprofen [Motrin] 800 mg PO Q8H PRN Oxytocin [Pitocin] 10 unit IM ONETIME PRN Simethicone 80 mg PO Q4H PRN 10/02/19 23:43 Assess Lochia [WOMSER] Per Unit Routine Assess Uterine Involution [WOMSER] Per Unit Routine Breast Pump [WOMSER] Per Unit Routine Ice Therapy [OM.PC] Per Unit Routine Perineal Care [OM.PC] Per Unit Routine Sitz Bath [OM.PC] Per Unit Routine 10/03/19 09:00 Vit with Ca/FA/Iron [ Plus Iron] 1 each PO DAILY 10/03/19 Breakfast Regular Diet [DIET] - Assessment Assessment:: 29-year-old now status post at 37w2d - Plan Plan:: 1. Initiate routine orders. 2. Mother plans to breastfeed. 3. Anticipate discharge at 10/04/19 Nimisha Betancourt MD
[2019-10-03] MEDS: Acetaminophen 325 MG Tab PO PRN ×3 (07:31→21:17)
--- NOTE | 2019-10-03 10:59 | PCM.SN ---
- Free Text/Narrative Note: DOS: 10-03-19 Nayeli doing well PPD #1 s/p with 2nd degree vag laceration. . feels well. afebrile no new complaints. would like to restart her fluoxetine will do that. fundus firm no edema plan discharge tomorrow see nurses notes and graphics for further details. b
[2019-10-03] MEDS ORDERED: FLUoxetine 10 MG Cap PO SCH (11:15)
[2019-10-03] MEDS: Prenatal Multivitamin with Calcium/Folic Acid/Iron Tab PO SCH (12:19)
[2019-10-03] MEDS: Ibuprofen 800 MG Tab PO PRN ×2 (14:19→22:05)
[2019-10-03] MEDS: Docusate Sodium 100 MG Cap PO PRN (21:17)
[2019-10-04] MEDS: Docusate Sodium 100 MG Cap PO PRN (08:39)
[2019-10-04] MEDS: Prenatal Multivitamin with Calcium/Folic Acid/Iron Tab PO SCH (08:39)
[2019-10-04] MEDS: Ibuprofen 800 MG Tab PO PRN (08:39)
[2019-10-04 09:16] VITALS: BP 105/66; PULSE 79
--- NOTE | 2019-10-04 12:11 | PCM.DCSUM1 ---
Discharge Summary - Hospital Course Free Text/Narrative:: Nayeli is a delightful 29yo G2 now P2 who is now PPD #2 from with 2nd degree laceration delivered by Dr. Betancourt on 10-02-19. Viable male APGARs 6 & 8, 7lb 3oz/ 3265g. See delivery note for details 2321 pm. has done well and is ready for discharge today 10-04-19 has gotten her RhoGam as she is RH/O negative and cord blood is B+/PHILIP negative. . hmb HPI Initial Comments: presented in active labor with advanced cervical dilation of 7cm @ 37w2d. see admission H&P for details. hmb Brief History: see EPIC notes for details. Diagnosis: Stroke: No - Discharge Data Discharge Date: 10/04/19 (PPD #2) Discharge Disposition: Home, Self-Care 01 Condition: Good - Referral to Home Health Primary Care Physician: Alyse Gardner MD - Discharge Diagnosis/Problem(s) (1) Mother currently breast-feeding SNOMED Code(s): 540539429 ICD Code: Z39.1 - ENCOUNTER FOR CARE AND EXAMINATION OF LACTATING MOTHER Status: Acute Current Visit: Yes - Patient Summary/Data Consults: Consultations 10/02/19 23:42 Consult to Computer Hardware Designer [CONS] Routine Hospital Course: course unremarkable. voiding, eating ambulating well. afebrile and VSS flow WNL, fundus firm. without difficulty. home today. - Patient Instructions Diet: Usual Diet as Tolerated Activity: As Tolerated Driving: May Drive Today Showering/Bathing: May Shower Notify Provider of: Fever, Increased Pain, Swelling and Redness, Drainage Other/Special Instructions: 6 week check - Discharge Plan *PRESCRIPTION DRUG MONITORING PROGRAM REVIEWED*: Not Applicable *COPY OF PRESCRIPTION DRUG MONITORING REPORT IN PATIENT [place]: Not Applicable Home Medications: Home Meds FLUoxetine HCl [Fluoxetine] 10 mg PO DAILY 10/02/19 [History] Ferrous Sulfate [Iron] 325 mg PO DAILY 10/02/19 [History] Pnv No.95/Ferrous Fum/Folic AC [ [place]] 1 tab PO DAILY 10/02/19 [ History] Patient Handouts: Vaginal Delivery Referrals: Alyse Gardner MD [Primary Care Provider] - (Please schedule your own 6 week appointment. ) - Discharge Summary/Plan Comment DC Time >30 min.: No Discharge Summary/Plan Comment: 6 week check - Patient Data Vitals - Most Recent: Last Vital Signs Temp 98.7 F 10/04/19 08:00 Pulse 79 10/04/19 08:00 Resp 16 10/04/19 08:00 BP 105/66 10/04/19 08:00 Pulse Ox 100 10/04/19 08:00 Weight - Most Recent: 170 lb I&O - Last 24 hours: Intake & Output 10/03/19 10/04/19 10/04/19 22:59 06:59 14:59 Intake Total 1 Balance 1 Lab Results - Last 24 hrs: Laboratory Results - last 24 hr 10/03/19 Range/Units 09:35 Blood Type O NEGATIVE Gel Antibody Screen Positive Antibody Identification Cancelled Rhogam Indicated Yes, baby rh pos H Med Orders - Current: Current Medications Acetaminophen (Tylenol) 650 mg PO Q4H PRN PRN Reason: Pain (Mild 1-3) and fever Last Admin: 10/03/19 21:17 Dose: 650 mg Benzocaine/Menthol (Dermoplast Pain Relief [place]) 0 gm TOP Q4H PRN PRN Reason: Perineal comfort measures Last Admin: 10/03/19 07:33 Dose: 1 spray Carboprost Tromethamine (Hemabate Ds) 250 mcg IM ASDIRECTED PRN PRN Reason: HEMORRHAGE Docusate Sodium (Colace) 100 mg PO BID PRN PRN Reason: Constipation Last Admin: 10/04/19 08:39 Dose: 100 mg Fluoxetine HCl (Prozac) 10 mg PO DAILY REMA Last Admin: 10/03/19 12:18 Dose: Not Given Lactated Ringer's (Ringers, Lactated) 1,000 mls @ 125 mls/hr IV ASDIRECTED REMA Last Admin: 10/02/19 22:00 Dose: 125 mls/hr Oxytocin/Sodium Chloride (Pitocin In Ns 30 Unit/500 Ml) 30 unit in 500 mls @ 2 mls/hr IV TITRATE REMA; Protocol Last Titration: 10/03/19 02:25 Dose: Infused Ibuprofen (Motrin) 800 mg PO Q8H PRN PRN Reason: Mild Pain or Fever Last Admin: 10/04/19 08:39 Dose: 800 mg Methylergonovine Maleate (Methergine) 0.2 mg IM ASDIRECTED PRN PRN Reason: Hemorrhage Misoprostol (Cytotec) 800 mcg RECTAL ASDIRECTED PRN PRN Reason: Hemorrhage Ondansetron HCl (Zofran) 4 mg IV Q4H PRN PRN Reason: Nausea/Vomiting Last Admin: 10/02/19 22:01 Dose: 4 mg Oxytocin (Pitocin) 10 unit IM ONETIME PRN PRN Reason: Bleeding Prenat Multivit/Pmo Analyst/Iron/Folic Ac ( Plus Iron) 1 each PO DAILY REMA Last Admin: 10/04/19 08:39 Dose: 1 each Simethicone (Simethicone) 80 mg PO Q4H PRN PRN Reason: Gas Sodium Chloride (Saline Flush) 10 ml FLUSH ASDIRECTED PRN PRN Reason: Keep Vein Open Discontinued Medications Lactated Ringer's (Ringers, Lactated) 500 mls @ 999 mls/hr IV .BOLUS ONE Stop: 10/02/19 22:07 Last Admin: 10/03/19 05:00 Dose: Not Given Tranexamic Acid 1,000 mg/ (Sodium Chloride) 110 mls @ 660 mls/hr IV ONETIME PRN PRN Reason: Bleeding Lidocaine HCl (Xylocaine-Mpf 1%) 30 ml INJECT ASDIRECTED PRN PRN Reason: Perineal Repair
[2019-10-04] MEDS ORDERED: fentaNYL 100 MCG/2 ML SDV ITHECAL ONE (12:29)
[2019-10-04] MEDS ORDERED: Sodium Bicarbonate 4.2% 2.5 MEQ/5 ML SDV ONE (12:29)
== END 2019-10-04 12:30 | disposition home or self-care (01) | DRG 560 ==
LOC: DL.OBCHECK 21:00 → DL.OB 21:37 → OBSVTOIN 23:21 → DL.OB 23:21
PROVIDERS: ADMIT Family Medicine; ATTEND Family Medicine
PROC: 10E0XZZ Delivery of Products of Conception, External Approach (ICD-10-PCS; principal; 2019-10-02)
PROC: 10907ZC Drainage of Amniotic Fluid, Therapeutic from Products of Conception, Via Natural or Artificial Opening (ICD-10-PCS; 2019-10-02)
PROC: 0KQM0ZZ Repair Perineum Muscle, Open Approach (ICD-10-PCS; 2019-10-02)
DX: O99.344 Other mental disorders complicating childbirth (principal); Z3A.37 37 weeks gestation of pregnancy; Z37.0 Single live birth; O70.1 Second degree perineal laceration during delivery; Z67.91 Unspecified blood type, Rh negative
CPT/HCPCS: 36415; 36430; 59409; 85027; 85461; 86850; 86870; 86900; 86901; A9270-GY; J2405; J2590; J2790; J3010; J7120

== ENCOUNTER 2024-01-16 22:46 | Inpatient (IN) | payer BC ==
[2024-01-16] MEDS: Lactated Ringers 1,000 ML IV ONE (23:10)
[2024-01-16] MEDS: Penicillin G Potassium 5 MILLUNITS in Sodium Chloride 0.9% 100 ML IV ONE (23:15)
[2024-01-16] MEDS: Ondansetron 4 MG/2 ML SDV IVPUSH PRN (23:20)
[2024-01-16] MEDS ORDERED: Sodium Chloride 0.9% 10 ML Syringe FLUSH PRN (23:40)
[2024-01-16] MEDS ORDERED: Carboprost Tromethamine 250 MCG/1 ML Amp IM PRN (23:40)
[2024-01-16] MEDS ORDERED: Tranexamic Acid 1,000 MG in Sodium Chloride 0.9% 100 ML IV PRN (23:40)
[2024-01-16] MEDS ORDERED: Misoprostol 400 MCG (4 X 100 MCG TAB) RECTAL PRN (23:40)
[2024-01-16] MEDS ORDERED: Methylergonovine 0.2 MG/1 ML Amp IM PRN (23:40)
[2024-01-16] MEDS ORDERED: Acetaminophen 325 MG Tab PO PRN (23:40)
[2024-01-16] MEDS ORDERED: Ropivacaine 200 MG in Premix Bag 1 BAG EPIDUR SCH (23:45)
[2024-01-16] MEDS ORDERED: Phenylephrine HCl In 0.9% NaCl 1 MG/10 ML Syringe IVPUSH PRN (23:50)
[2024-01-16] MEDS ORDERED: ePHEDrine 50 MG/ML SDV IVPUSH PRN (23:50)
[2024-01-16] MEDS: Lactated Ringers 1,000 ML IV SCH (23:50)
[2024-01-16 23:58] LABS: HEMATOCRIT 36.5 % (37.0-47.0); HEMOGLOBIN 12.4 g/dL (12.0-16.0); MEAN CORPUSCULAR HEMOGLOBIN 30.9 pg (27.0-34.0); RED BLOOD CELL COUNT 4.01 10^6/uL (4.2-5.4); WHITE BLOOD CELL COUNT,WBC 13.1 10^3/uL (5.0-10.0)
[2024-01-17] MEDS: Oxytocin/Normal Saline 30 UNIT/500 ML BAG IV SCH (02:00)
[2024-01-17] MEDS ORDERED: Oxytocin 10 Units/1 ML SDV IM PRN (02:56)
[2024-01-17] MEDS ORDERED: Witch Hazel Medicated Pads 100/Jar TOP PRN (02:56)
[2024-01-17] MEDS ORDERED: Simethicone 80 MG Tab.Chew PO PRN (02:56)
[2024-01-17] MEDS ORDERED: Acetaminophen 325 MG Tab PO PRN (02:56)
[2024-01-17] MEDS: Lidocaine 1% 30 ML SDV INJECT ONE (03:56)
[2024-01-17] MEDS ORDERED: Penicillin G Potassium 3 MILLUNITS in Sodium Chloride 0.9% 100 ML IV SCH (04:00)
[2024-01-17] MEDS: Benzocaine/Menthol 20%-0.5% Spray 78 GM Cannister TOP PRN (05:48)
[2024-01-17] MEDS: Docusate Sodium 100 MG Cap PO PRN (08:00)
[2024-01-17] MEDS: Ibuprofen 800 MG Tab PO PRN (08:00)
[2024-01-17] MEDS: Prenatal Multivitamin with Calcium/Folic Acid/Iron Tab PO SCH (08:00)
[2024-01-18 18:06] VITALS: BP 120/70; PULSE 80
== END 2024-01-18 18:25 | disposition home or self-care (01) | DRG 560 ==
LOC: DL.OBCHECK 22:46 → DL.OB 23:23 → OBSVTOIN 01-17 01:50
PROVIDERS: ADMIT Family Medicine; ATTEND Family Medicine
PROC: 10E0XZZ Delivery of Products of Conception, External Approach (ICD-10-PCS; principal; 2024-01-17)
PROC: 10907ZC Drainage of Amniotic Fluid, Therapeutic from Products of Conception, Via Natural or Artificial Opening (ICD-10-PCS; 2024-01-17)
PROC: 3E0R3BZ Introduction of Anesthetic Agent into Spinal Canal, Percutaneous Approach (ICD-10-PCS; 2024-01-17)
PROC: 00HU33Z Insertion of Infusion Device into Spinal Canal, Percutaneous Approach (ICD-10-PCS; 2024-01-17)
PROC: 3E033VJ Introduction of Other Hormone into Peripheral Vein, Percutaneous Approach (ICD-10-PCS; 2024-01-17)
PROC: 3E0334Z Introduction of Serum, Toxoid and Vaccine into Peripheral Vein, Percutaneous Approach (ICD-10-PCS; 2024-01-17)
DX: O99.02 Anemia complicating childbirth (principal); Z37.0 Single live birth; O99.824 Streptococcus B carrier state complicating childbirth; O26.893 Other specified pregnancy related conditions, third trimester; O70.0 First degree perineal laceration during delivery; O77.0 Labor and delivery complicated by meconium in amniotic fluid; Z3A.38 38 weeks gestation of pregnancy; Z67.41 Type O blood, Rh negative
CPT/HCPCS: 01967; 36415; 59409; 85027; 85461; 86850; 86900; 86901; A9270-GY; J2405; J2540; J2590; J2790; J3490; J7120